=== PATIENT | male | born 1995 | race Two or more races ===

== ENCOUNTER 2022-05-26 03:19 | Emergency (ER) | payer SELFPAY ==
[2022-05-26] MEDS ORDERED: Ondansetron 4 MG/2 ML SDV IVPUSH ONE (03:35)
[2022-05-26] MEDS ORDERED: Sodium Chloride 0.9% 10 ML Syringe FLUSH PRN (03:35)
[2022-05-26] MEDS ORDERED: Sodium Chloride 0.9% 1,000 ML IV SCH (03:45)
[2022-05-26 04:02] LABS: ESTIMATED GFR 72 mL/min (>60)
[2022-05-26] MEDS ORDERED: Calcium Carbonate/Vitamin D3 1500 MG-400 Units Tab PO STA (04:08)
== END 2022-05-26 05:12 | disposition home or self-care (01) ==
LOC: JP.ED 03:19
DX: M62.838 Other muscle spasm (principal); R11.2 Nausea with vomiting, unspecified; E87.6 Hypokalemia; E86.0 Dehydration; E83.51 Hypocalcemia
CPT/HCPCS: 36415; 80053; 80307; 85025; 96361; 96374; 99284; A9270; J2405; J3490; J7030